=== PATIENT | male | born 1950 | race Two or more races ===

== ENCOUNTER 2018-03-24 10:20 | Outpatient (CLI) | payer MEDICARE, MEDICAID | END 2018-03-24 23:59 | disposition home health service (06) | LOC: WOU 10:20 | PROVIDERS: ATTEND Podiatrist Foot & Ankle Surgery | DX: E11.621 Type 2 diabetes mellitus with foot ulcer (principal); L97.412 Non-pressure chronic ulcer of right heel and midfoot with fat layer exposed; E11.22 Type 2 diabetes mellitus with diabetic chronic kidney disease; E11.42 Type 2 diabetes mellitus with diabetic polyneuropathy; N18.6 End stage renal disease; Z99.2 Dependence on renal dialysis; Z79.4 Long term (current) use of insulin; R26.9 Unspecified abnormalities of gait and mobility; R53.1 Weakness; M21.70 Unequal limb length (acquired), unspecified site; I73.9 Peripheral vascular disease, unspecified; B35.1 Tinea unguium | CPT/HCPCS: 11106; 87070; 87075; A6402; 88304-TC; 88312-TC ==

== ENCOUNTER 2018-03-31 10:30 | Outpatient (CLI) | payer MEDICARE, MEDICAID | END 2018-03-31 23:59 | disposition home health service (06) | LOC: WOU 10:30 | PROVIDERS: ATTEND Podiatrist Foot & Ankle Surgery | DX: E11.621 Type 2 diabetes mellitus with foot ulcer (principal); L97.412 Non-pressure chronic ulcer of right heel and midfoot with fat layer exposed; E11.22 Type 2 diabetes mellitus with diabetic chronic kidney disease; E11.42 Type 2 diabetes mellitus with diabetic polyneuropathy; N18.6 End stage renal disease; Z99.2 Dependence on renal dialysis; Z79.4 Long term (current) use of insulin | CPT/HCPCS: 11042; A6402 ==

== ENCOUNTER 2018-04-14 10:25 | Outpatient (CLI) | payer MEDICARE, MEDICAID | END 2018-04-14 23:59 | disposition home or self-care (01) | LOC: WOU 10:25 | PROVIDERS: ATTEND Podiatrist Foot & Ankle Surgery | DX: E11.621 Type 2 diabetes mellitus with foot ulcer (principal); L97.412 Non-pressure chronic ulcer of right heel and midfoot with fat layer exposed; E11.42 Type 2 diabetes mellitus with diabetic polyneuropathy; Z79.4 Long term (current) use of insulin; B35.3 Tinea pedis | CPT/HCPCS: 11042; A6402 ==

== ENCOUNTER 2018-04-21 10:30 | Outpatient (CLI) | payer MEDICARE, MEDICAID | END 2018-04-21 23:59 | disposition home or self-care (01) | LOC: WOU 10:30 | PROVIDERS: ATTEND Podiatrist Foot & Ankle Surgery | DX: E11.621 Type 2 diabetes mellitus with foot ulcer (principal); L97.412 Non-pressure chronic ulcer of right heel and midfoot with fat layer exposed; E11.42 Type 2 diabetes mellitus with diabetic polyneuropathy; Z79.4 Long term (current) use of insulin; R60.9 Edema, unspecified | CPT/HCPCS: 11042; A6402 ==

== ENCOUNTER 2018-10-20 09:25 | Outpatient (CLI) | payer MEDICARE, MEDICAID | END 2018-10-20 23:59 | disposition home or self-care (01) | LOC: WOU 09:25 | PROVIDERS: ATTEND Podiatrist Foot & Ankle Surgery | DX: Z09 Encounter for follow-up examination after completed treatment for conditions other than malignant neoplasm (principal); L84 Corns and callosities; B35.1 Tinea unguium; E11.22 Type 2 diabetes mellitus with diabetic chronic kidney disease; E11.42 Type 2 diabetes mellitus with diabetic polyneuropathy; N18.6 End stage renal disease; Z99.2 Dependence on renal dialysis; Z79.4 Long term (current) use of insulin; Z86.31 Personal history of diabetic foot ulcer | CPT/HCPCS: G0463 ==